=== PATIENT | female | born 1990 | race Caucasian/White ===

== ENCOUNTER → 2018-10-31 | Outpatient (CLI) | payer OTHER | LOC: FIMAGING 18:29 | PROVIDERS: ATTEND Psychiatry & Neurology Neurology | DX: R20.0 Anesthesia of skin (principal); H53.8 Other visual disturbances; R20.2 Paresthesia of skin ==

== ENCOUNTER 2018-11-17 11:04 | Observation (INO) | payer OTHER ==
[2018-11-17 11:42] LABS: PLATELET COUNT 252 10^3/uL (150-400)
[2018-11-17] MEDS ORDERED: GABAPENTIN 300 MG CAP PO ONE (13:59)
[2018-11-17] MEDS ORDERED: GADOBUTROL 10 ML VIAL IVP ONE (14:26)
[2018-11-17] MEDS ORDERED: ONDANSETRON 4 MG/2 ML VIAL IVP PRN (16:03)
--- NOTE | 2018-11-17 16:06 | EDPHY ---
H & P Stated Complaint: seen savage/mri for neuro issues/numbness/shaking ?MS/eeg due sunday Time Seen by Provider: 11/17/18 11:30 HPI/ROS: CHIEF COMPLAINT: Shaking HISTORY OF PRESENT ILLNESS: This is a 28-year-old female who was undergoing an outpatient workup of various neurological problems. She has been having waxing and waning numbness involving her face, her arms, and her legs since she was in her early 20s. This has been worsening recently. She has been diagnosed with optic neuritis. She has seen Dr. Dangelo, neurology, and has undergone a noncontrast MRI of the brain. She is scheduled for an EEG at the end of this week. She was started on gabapentin on October 25 of this year and is currently taking 100 mg once daily. She comes to the emergency room today concerned about weakness and shakiness. She says that it is hard to move her arms. Earlier today she had an episode where she was unable to move either arm for 10-15 minutes. She has noticed some neck stiffness (no headache, no fever, no neck pain). Today she stretched out on the floor and had to leave work because she was feeling so shaky and weak. While driving she began shaking all over. This lasted for hours but is better now that she is in the emergency department. She states that her whole body is involved with this tremoring, perhaps worse in her upper body than her lower body. She also notes that she is unable to walk because she feels weak and has to reach out to hold onto the ambrosio. She has never had a tonic-clonic seizure. No trauma. She is unable to identify anything that makes the symptoms worse. Attention deficit hyperactivity disorder REVIEW OF SYSTEMS: A ten system review of systems was performed and is negative with the exception of the items mentioned in the HPI. Past medical history: Attention deficit hyperactivity disorder Past surgical history: Vaishali fundoplication Family history: No family history of MS Social history: She works in [employer]. She does not use tobacco products. She rarely drinks alcohol. No illicit drugs. General Appearance: Alert. Vital signs reviewed. Heart rate 108 at triage. Eyes: Pupils equal and round, no conjunctival injection, no discharge. Anicteric. ENT, Mouth: Mucous membranes are moist, no oropharyngeal erythema or edema. Neck: No lymphadenopathy, supple. Respiratory: Lungs are clear to auscultation; no wheezes, rales, or rhonchi. Cardiovascular: Regular rate and rhythm; no murmur, rub, or gallop. Not tachycardic at the time of my exam. Gastrointestinal: Abdomen is soft and nontender, no masses or organomegaly, bowel sounds normal. Skin: Warm and dry, no rashes on exposed skin, normal color. Back: Nontender to palpation over the thoracolumbar spine. No CVAT. Extremities: No lower extremity edema, no calf tenderness or swelling. Neurological: Alert and oriented. Moving all four extremities easily and equally. Cranial nerves II through XII are examined and are intact (visual acuity not tested). Strength is symmetric, 4+ over 5 bilaterally with testing of all major motor groups. No fasciculations. Sensation is intact to light touch over all 4 extremities. Deep tendon reflexes are 2+ in the biceps, triceps and knees bilaterally. No clonus. Normal Teixeira's. [id number] is performed with significant past pointing. She is able to stand on her own but when she begins to walk she feels it necessary to reach out to hold on to something. She has a steppage gait. Psychiatric: Normal affect. - Personal History LMP (Females 10-55): Extended Cycle BCP/Inj Current Tetanus Diphtheria and Acellular Pertussis (TDAP): Yes - Medical/Surgical History Hx Asthma: No Hx Chronic Respiratory Disease: No Hx Diabetes: No Hx Cardiac Disease: No Hx Renal Disease: No Hx Cirrhosis: No Hx Alcoholism: No Hx HIV/AIDS: No Hx Splenectomy or Spleen Trauma: No Other PMH: vicky fundalplication ruling out MS - Social History Smoking Status: Never smoked Constitutional: Initial Vital Signs Temperature (C) 37.2 C 11/17/18 11:09 Heart Rate 108 H 11/17/18 11:09 Respiratory Rate 18 11/17/18 11:09 Blood Pressure 127/86 H 11/17/18 11:09 O2 Sat (%) 95 11/17/18 11:09 O2 Delivery Mode Room Air Allergies/Adverse Reactions: ibuprofen Allergy (Verified 11/17/18 14:13) Other-Enter Comments Home Medications: Medication Instructions Recorded Albuterol Sulfate [Albuterol 1 - 2 puffs IH Q4H PRN 11/17/18 Sulfate Hfa] Calcium Carbonate [Oyster Shell 500 mg PO DAILY 11/17/18 Calcium 500 mg (*)] Fluticasone/Salmeter 250/50Mcg 1 puffs IH BID 11/17/18 [Advair 250/50 (*)] Gabapentin [Neurontin 100 MG (*)] 200 mg PO DAILY 11/17/18 Loratadine [Claritin 10 mg] 10 mg PO DAILY 11/17/18 Methylphenidate HCl [Ritalin 20mg 20 mg PO DAILY 11/17/18 (*)] Norethindrone [Krysta] 0.35 mg PO DAILY 11/17/18 Ranitidine HCl [Zantac] 150 mg PO BID 11/17/18 Medical Decision Making ED Course/Re-evaluation: 28-year-old female undergoing a workup of neurologic symptoms. She had a normal MRI scan of her brain on October 31 of this year. She is scheduled to undergo an EEG on Sunday. At the time of my examination she had intermittent shaking/tremulousness that seem to involve her entire body. These resolved spontaneously. These movements appeared to be worse when she was making intentional movements. She was unable to walk on her own--she became shaky and her gait was a steppage type gait. She had to hold on to something in order to move forward. I do not see anything that looked like a tonic clonic seizure, a focal motor seizure, or an absence seizure. Her workup for MS is ongoing. MRI was negative for evidence of demyelination. It was also negative for Arnold-Chiari malformation. CBC and chemistries are normal. No evidence of electrolyte abnormality. There is nothing in the history or physical to suggest infection. I spoke with Dr. Carlos Coffman, on-call for Neurology. He is recommending MRI scan with and without contrast of the brain in the cervical spine. These have been ordered. She will be admitted to the hospital for further evaluation. Dr. Coffman will see her in the hospital in consultation. - Data Points Laboratory Results: Laboratory Results 11/17/18 11:30 11/17/18 11:30 11/17/18 11/17/18 11:30 11:30 WBC 7.15 10^3/uL 10^3/uL (3.80-9.50) RBC 4.84 10^6/uL 10^6/uL (4.18-5.33) Hgb 15.5 g/dL g/dL (12.6-16.3) Hct 45.5 % % (38.0-47.0) MCV 94.0 fL fL (81.5-99.8) MCH 32.0 pg pg (27.9-34.1) MCHC 34.1 g/dL g/dL (32.4-36.7) RDW 12.2 % % (11.5-15.2) Plt Count 252 10^3/uL 10^3/uL (150-400) MPV 10.7 fL fL (8.7-11.7) Neut % (Auto) 68.4 % % (39.3-74.2) Lymph % (Auto) 25.7 % % (15.0-45.0) Burleigh % (Auto) 4.8 % % (4.5-13.0) Eos % (Auto) 0.4 % L % (0.6-7.6) Baso % (Auto) 0.3 % % (0.3-1.7) Nucleat RBC Rel Count 0.0 % % (0.0-0.2) Absolute Neuts (auto) 4.89 10^3/uL 10^3/uL (1.70-6.50) Absolute Lymphs (auto) 1.84 10^3/uL 10^3/uL (1.00-3.00) Absolute Monos (auto) 0.34 10^3/uL 10^3/uL (0.30-0.80) Absolute Eos (auto) 0.03 10^3/uL 10^3/uL (0.03-0.40) Absolute Basos (auto) 0.02 10^3/uL 10^3/uL (0.02-0.10) Absolute Nucleated RBC 0.00 10^3/uL 10^3/uL (0-0.01) Immature Gran % 0.4 % % (0.0-1.1) Immature Gran # 0.03 10^3/uL 10^3/uL (0.00-0.10) Sodium 140 mEq/L mEq/L (135-145) Potassium 4.1 mEq/L mEq/L (3.5-5.2) Chloride 109 mEq/L mEq/L (97-110) Carbon Dioxide 20 mEq/l L mEq/l (22-31) Anion Gap 11 mEq/L mEq/L (6-14) BUN 13 mg/dL mg/dL (7-23) Creatinine 0.6 mg/dL mg/dL (0.6-1.0) Estimated GFR > 60 Glucose 95 mg/dL mg/dL (70-100) Calcium 10.3 mg/dL mg/dL (8.5-10.4) Medications Given: Discontinued Medications Gabapentin (Neurontin) 300 mg PO EDNOW ONE Stop: 11/17/18 14:00 Last Admin: 11/17/18 14:03 Dose: 300 mg Departure - Departure Disposition: [facility] Inpatient Acute Clinical Impression: Shaking, Unable to walk Condition: Good
--- NOTE | 2018-11-17 16:46 | GHP ---
[f rep st] HISTORY AND PHYSICAL DATE OF ADMISSION: 11/17/2018 CHIEF COMPLAINT: Weakness and shaking. HISTORY: Cookie salas a 28-year-old female who was recently diagnosed with optic neuritis and just compl eted a course of steroids. She has seen Dr. Jean-Claude Andre as an outpatient. She now presents to the [facility] with weakness and numbness and shaking, with the shaking being so severe in the emergency room that she is unable to ambulate. She says she has had intermittent symptoms of migrating numbness and tingling as well as brief episod es of weakness for quite some time. In September she was at work and lifted some heavy mats causing lo w back pain and she was out on [employer] comp. Shortly after that, she started to develop some visio n changes which she initially attributed to her back problem. She developed tunnel vision, blinking vision, loss of color vision predominantly in her left eye. She saw an filling machine tender and was diagn osed with optic neuritis and started on a course of steroids. She just finished the steroids 1 week ago and her vision has improved, although since stopping the steroids it did get slightly worse again . Previous episodes of weakness and shaking include an episode when she was at a wedding on the [facility] last August where her noted both her arms shake uncontrollably but then it resolved and she went to sleep and was better in the morning. She also had an episode last summer. She also not es brief episodes of weakness, upper extremity worse than lower extremity, such as she would spontane ously drop her phone and loose tone in her arm but then it would immediately come back. Two days ago she had an episode where both her arms were paralyzed and it was noticed by her , but again s he went to sleep and woke up in the morning and things were fine. This shaking never has any accompa nying loss of consciousness. It does not appear to be seizure-like. Today she was at work and she s tarted shaking in her upper extremities. She went out to her car to drive home. She could not get o ut of the car, could not walk, her balance is poor so she came to the emergency room. PAST MEDICAL HISTORY: 1. Asthma. 2. ADD. 3. Diabetes type 2, diet controlled. 4. GERD. 5. Endometriosis. PAST SURGICAL HISTORY: 1. Vaishali fundoplication at age 14. 2. Benign breast tumor removal. MEDICATIONS: Please see computerized record for full detailed list. ALLERGIES: Ibuprofen. SOCIAL HISTORY: No smoking. No alcohol. She is a mental health therapist. She lives with her husb and. They do not have children. REVIEW OF SYSTEMS: Complete review of systems obtained. Review of systems negative regarding consti tutional, HEENT, GI, pulmonary, vascular, , hematology, skin, muscular, endocrine, psych except for positives as under HPI. FAMILY HISTORY: Her grandmother had MS. Her mother has multiple medical problems; however, has inco nsistent followup with physicians so it is unclear what the true diagnoses are. PHYSICAL EXAMINATION: GENERAL: Well-developed, well-nourished female, in no acute distress. VITAL SIGNS: Temperature 37.2, pulse 108, blood pressure 127/86, saturating 95% on room air. EYES: Kiana l conjunctiva. Pupils react to light. ENT: Normal ears, nose. Hearing intact. Normal lips and te eth. Oropharynx moist. NECK: Trachea midline. No thyromegaly. CHEST: Normal respiratory effort. LUNGS: Clear to auscultation bilaterally. CARDIOVASCULAR SYSTEM: Regular rate and rhythm. No mu rmur. No lower extremity edema. ABDOMEN: Soft, nontender. No hepatosplenomegaly. SKIN: Warm, dr y and intact without rash. MUSCULOSKELETAL: No cyanosis or clubbing. Strength is 3/5 to 4/5 upper and lower extremities with some inconsistencies in exam. NEURO: Cranial nerves intact. Normal sens ation to light touch. PSYCH: Alert and oriented x3. Normal affect. Normal judgment. Normal memor y. LABORATORY DATA: White count 7.15, hematocrit 45.5, platelets 252. Sodium 140, potassium 4.1, chlor evie 109, bicarb 20, BUN 13, creatinine 0.6, glucose 95. This case was discussed with Dr. Fariba Duran. She has spoken to Dr. Coffman who will see her in consu ltation. ASSESSMENT/PLAN: 1. Migrating numbness and weakness, now with severe tremor and lower extremity weakness causing an i nability to ambulate. Of course, with her recent optic neuritis this suggests the possibility of mul tiple sclerosis. Dr. Coffman will see her in consultation. We will check an MRI of the brain and C-spi ne. 2. Optic neuritis. She recently finished a steroid course although suggest her vision may be worsen ing again. She should follow up closely with Ophthalmology. 3. Attention deficit disorder. Continue Ritalin. 4. Asthma. Continue Advair. CODE STATUS: Full. ADMISSION STATUS: 1. Will admit to observation. Re-evaluate tomorrow regarding ongoing need for hospitalization. 2. DVT prophylaxis. She is increased risk due to her immobility at this time. We will place her on subcu Lovenox. /[id number]/MODL
[2018-11-17] MEDS: ACETAMINOPHEN 325 MG TAB PO PRN (19:55)
[2018-11-17] MEDS: FAMOTIDINE 20 MG TAB PO SCH (19:55)
[2018-11-17] MEDS: FLUTICASONE/SALMETER 250/50MCG DISKUS IH SCH (21:48)
[2018-11-17] MEDS: GABAPENTIN 300 MG CAP PO SCH (21:48)
[2018-11-17] MEDS ORDERED: CYCLOBENZAPRINE 10 MG TAB PO PRN (22:20)
--- NOTE | 2018-11-17 23:12 | NEUROPROG ---
Assessment: Neurology Consult: - CC: Dr. Kate Jennings consulted neurology for shaking. Results placed in EMR for her review. - HPI: 11/17/18: Pt followed by my colleague, Dr. Jean-Claude Andre, for various neurologic complaints (intermittent facial/arms/legs numbness). Brain MRI evaluation and outpatient evaluation has not found any clear etiology for her symptoms. Pt has recently been started on gabapentin 100 mg qhs. Pt presented to [facility] ER on complaining of intermittent shaking of body in context of normal mentation and no clear generalized seizures. She also has a sense of subjective weakness in her arms and legs. I initially saw her on 11/17/18. Neurologic exam showed giveway weakness in arms and legs. Brain MRI wwo normal. C-spine MRI wwo pending. Will increase gabapentin to 300 mg tid to treat symptoms and get EEG to evaluate for seizures. - PMHx: ADD, dominique fundoplication - SHx: speaks ukrainian FHx: No MS - ROS: Pt denied acute fever, total vision loss, active severe chest pain, respiratory failure, total body severe rash, total bowel/bladder incontinence, psychosis, active seizures, or active bleeding - O: VS reviewed General: Alert Eyes: Fundoscopic exam not able to visualize optic disks CV: Heart RRR, no murmur, no carotid bruit Lungs: Clear to auscultation bilaterally, no rhonchi or rales Neuro: - Mental: . Oriented x person/place/date . concentration appears normal . speech fluency/comprehension normal . memory appears normal . fund of knowledge appear intact - Cranial Nerves: . II: PERRL, VFFTC . III/IV/: EOMI, no nystagmus, normal smooth pursuits, no Ptosis . V: facial sensation intact to LT . VII: face symmetric to eye closure and smile . VIII: hearing intact to conversation . IX/X: uvula raises symmetrically . XI: SCM 5/5 B/L strength . XII: tongue protrudes midline w/nl strength - Motor: . Tone: normal tone in all 4 extremity . Strength: no pronator drift, giveway weakness in arms and legs - Reflexes: B/L bic/BR/patella 2/4 - Sensory: all 4 extremity intact to light touch - Coord: [id number] wnl, LADARIUS wnl, [id number] wnl - Gait: deferred - Labs: 11/17/18- CBC wnl, Chem CO2 20L - Rads: 11/17/18- Brain MRI wwo: normal 11/17/18- Cervical MRI wwo: - Assessment: 1. Intermittent numbness, sense of weakness, and shaking: Unclear cause. Will get EEG and cervical MRI wwo. - Plan: - Increase gabapentin 200 mg qhs to 300 mg TID to provide anti-tremor, anti- anxiety, and anti-seizure prevention given uncertainty of her diagnosis - Cervical MRI wwo - EEG - PT/OT - Her otpt neurologist, Dr. Andre, will take over service tomorrow and can see pt inpatient setting to review results Objective: Vital Signs Temp Pulse Resp BP Pulse Ox 36.9 C 92 14 107/62 96 11/17/18 22:56 11/17/18 22:56 11/17/18 22:56 11/17/18 22:56 11/17/18 22:56 11/16/18 11/17/18 11/18/18 04:59 05:59 05:59 Intake Total 200 Balance 200 Allergies/Adverse Reactions: ibuprofen Allergy (Verified 11/17/18 14:13) Other-Enter Comments
[2018-11-18] MEDS: ACETAMINOPHEN 325 MG TAB PO PRN (03:54)
[2018-11-18 08:49] VITALS: BP 125/80
[2018-11-18] MEDS ORDERED: ENOXAPARIN 40 MG/0.4 ML SYR SC SCH (09:00)
[2018-11-18] MEDS ORDERED: GABAPENTIN 100 MG CAP PO SCH (09:00)
[2018-11-18] MEDS ORDERED: CETIRIZINE 10 MG TAB PO SCH (09:00)
[2018-11-18] MEDS ORDERED: NORETHINDRONE 0.35 MG PO SCH (09:00)
[2018-11-18] MEDS: FLUTICASONE/SALMETER 250/50MCG DISKUS IH SCH (09:39)
[2018-11-18] MEDS: FAMOTIDINE 20 MG TAB PO SCH (09:51)
[2018-11-18] MEDS: GABAPENTIN 300 MG CAP PO SCH (09:51)
--- NOTE | 2018-11-18 11:02 | NEUROPROG ---
Assessment: 1. Indeterminate spells 2. History of emotional trauma 3. History of migrainous symptoms 35 total minutes floor time; over 50% counseling coordination of care. I have seen this patient as an outpatient for consultation. Essentially, she has migrainous symptoms and other symptoms which are difficult to explain. She has a history of motion trauma and has had therapy. She came to the ED because of uncontrollable shaking. She and her demonstrated what this looks like. They demonstrated a low to moderate amplitude arhythmic, asynchronous movement of all 4 limbs lasting around 4 hr with preservation of consciousness. However, time she felt "in and now" but essentially she was aware and awake during most of the uncontrollable shaking She had a repeat MRI brain which was also normal. There is no evidence of multiple sclerosis, tumor mass lesions. MRI of the cervical spine showed a disc bulge without significant compression of the cord. She does feel better on gabapentin 300 mg three times daily. No side effects from gabapentin. We discussed potential risks, benefits and alternatives of gabapentin. Plan: 1. Continue gabapentin 300 mg three times daily for time being - this may help with migraine prophylaxis and anxiety symptoms 2. We will discontinue inpatient EEG and outpatient 4 hr video EEG. 3. We are discontinuing EEG because I think we need to expedite definitive diagnosis with inpatient video EEG monitoring. As such, I have referred her to the [facility] epilepsy [facility] for consultation and consideration to the epilepsy monitoring unit for spell classification. 4. She is setting up appointment with the Neuro-Ophthalmology division [facility] for clarification of her Ophthalmology in Optometry reports. She will bring those studies along with her imaging results to that appointment. 5. Indefinite driving restrictions and seizure precautions until diagnosis is clarified by [facility] . She is agreeable. She will follow-up with [facility] as an outpatient as noted above. No further recommendations now. She can discharge home when cleared by therapies. No further recommendations. We will continue to follow as needed. Please do not hesitate to call if there are any questions or changes in neurologic status with this patient. Subjective: No further spells Objective: Vital Signs Temp Pulse Resp BP Pulse Ox 36.7 C 86 16 125/80 H 98 11/18/18 08:00 11/18/18 08:00 11/18/18 08:00 11/18/18 08:00 11/18/18 08:00 11/17/18 11/18/18 11/19/18 05:59 05:59 05:59 Intake Total 700 Output Total 300 525 Balance 400 -525 Awake and alert No aphasia No convulsive movements on exam No drift or weakness on motor exam Allergies/Adverse Reactions: ibuprofen Allergy (Verified 11/17/18 14:13) Other-Enter Comments
--- NOTE | 2018-11-18 14:59 | GDS ---
[f rep st] DISCHARGE SUMMARY DISCHARGE DIAGNOSES: 1. History of emotional trauma. 2. Indeterminate spells. 3. History of migraine symptoms. CONSULTATIONS: Neurology. STUDIES AND PROCEDURES: 1. Cervical spine MRI. 2. Brain MRI. PHYSICAL EXAM: GENERAL: The patient is alert. VITAL SIGNS: Afebrile at 36.7, pulse 86, respirator y rate 16, blood pressure is 125/80. She is saturating 98% on room air. I have seen and evaluated t he patient on the day of discharge. HOSPITAL COURSE: The patient is a 28-year-old female presenting to the hospital with complaints of w eakness and shaking. During this hospitalization, she received an MRI of her brain, as well as an MR I of her cervical spine. A consultation was also performed by Neurology. Her symptoms are intermitt ent and undetermined what the underlying condition is. She will follow up with the [facility] as an outpatient for further studies and testing. I have provided her a prescription for gabap entin at the time of disposition. DISCHARGE MEDICATIONS: Please refer to EMR form. FOLLOWUP: Will be with her primary care physician, as well as [facility]. I have discus sed the patient's disposition with Dr. Andre of Neurology, who is in agreement with this plan. /[id number]/MODL
== END 2018-11-18 12:41 | disposition home or self-care (01) ==
LOC: F3N 17:02
PROVIDERS: ADMIT Internal Medicine; ATTEND Hospitalist
DX: R25.1 Tremor, unspecified (principal); R53.1 Weakness; R26.2 Difficulty in walking, not elsewhere classified; G43.909 Migraine, unspecified, not intractable, without status migrainosus; F90.9 Attention-deficit hyperactivity disorder, unspecified type; E11.9 Type 2 diabetes mellitus without complications; K21.9 Gastro-esophageal reflux disease without esophagitis; Z91.411 Personal history of adult psychological abuse
CPT/HCPCS: 70553; 72156; 97162; 97166; G0378; A9585; J1650